=== PATIENT | male | born 1965 | race Caucasian/White ===

== ENCOUNTER 2022-01-05 13:39 | Inpatient (IN) | payer BC, MEDICAID ==
[~2022-01-05] VITALS: Ht 172.7 cm; Wt 99.8 kg
[2022-01-05 13:50] VITALS: BP_SYST 122
--- NOTE | 2022-01-05 13:50 | NUR ---
Patient to ER bed 6 for evaluation. Side rails up. Report given to Fallon VALLE.
--- NOTE | 2022-01-05 13:52 | NUR ---
Pt brought by ALS, A&Ox4, pt presents to ER with rectal bleeding/ tarry stool,BS 454, pt states he did not go to dyalisis today since he had diarrhea, pt respirations even and unlabored,copious amount of blood noticed in the gurney, 1 liter of fluid started by EMS, 20 gauge IV on L hand is intact cap refill <3, skin is pale, pt has Hx of R BKA, will cont to monitor.
--- NOTE | 2022-01-05 13:55 | NUR ---
Dr Crockett evaluating patient at bedside
--- NOTE | 2022-01-05 14:20 | NUR ---
Report given to Aj VALLE
--- NOTE | 2022-01-05 14:20 | NUR ---
David strong in [facility] - 01/05/22 at 1503 by [email or web address] Report given to Isidro VALLE
[2022-01-05 15:00] LABS: ANION GAP 12 (5-15); CALCIUM 9.2 mg/dL (8.4-11.0); CHLORIDE 95 mmol/L (98-107); SODIUM SERUM 133 mmol/L (136-145)
[2022-01-05 15:01] LABS: BASOPHILS % (AUTO) 0.7 % (0.0-2.0); EOSINOPHILS # (AUTO) 0.1 K/uL (0.0-0.4); EOSINOPHILS % (AUTO) 1.3 % (0.0-4.0); GFR AFRICAN AMERICAN 10 mL/min (>90); LYMPHOCYTES # (AUTO) 1.5 K/uL (1.0-5.5); LYMPHOCYTES % (AUTO) 21.1 % (20.5-51.5); MEAN CORPUSCULAR HEMOGLOBIN 27 pg (27-31); MEAN CORPUSCULAR HGB CONC 33 % (32-36); MEAN CORPUSCULAR VOLUME 82 fL (79.0-98.0); MONOCYTES # (AUTO) 0.4 K/uL (0.0-1.0); MONOCYTES % (AUTO) 6.1 % (1.7-9.3); NEUTROPHILS # (AUTO) 5.1 K/uL (1.8-7.7); NEUTROPHILS % (AUTO) 70.8 % (40.0-70.0); PLATELET COUNT (AUTO) 167 K/uL (130-430); RED BLOOD CELL COUNT(AUTO) 2.56 MIL/uL (4.2-6.2); RED CELL DISTRIBUTION WIDTH 13.9 % (9.0-15.0); WHITE BLOOD COUNT (AUTO) 7.2 K/uL (4.8-10.8)
[2022-01-05 15:03] LABS: POTASSIUM 7.3 mmol/L (3.5-5.1)
[2022-01-05 15:04] LABS: CREATININE 7.64 mg/dL (0.55-1.30); GLUCOSE 500 mg/dL (70-99); UREA NITROGEN, BLOOD 159 mg/dL (8-21)
[2022-01-05 15:05] LABS: ACETONE, SERUM NEGATIVE (NEGATIVE); LIPASE 141 U/L (73-393)
[2022-01-05 15:07] LABS: ALANINE AMINOTRANSFERASE 15 U/L (12-78); ALBUMIN 2.4 g/dL (3.4-4.8); ASPARTATE AMINOTRANSFERASE 20 U/L (10-37); TOTAL BILIRUBIN 0.4 mg/dL (0.0-1.0)
[2022-01-05 15:08] LABS: HEMOGLOBIN 6.9 g/dL (14.0-18.0)
[2022-01-05 15:09] LABS: HEMATOCRIT 20.9 % (36-54)
[2022-01-05] MEDS ORDERED: NACL 0.9% 1,000 ML IV ONE ×2 (15:15)
[2022-01-05] MEDS ORDERED: SODIUM POLYSTYRENE SULFONATE 15 GM/60 ML UDBTL PO ONE (15:15)
[2022-01-05] MEDS ORDERED: SODIUM BICARBONATE 8.4% JECT 50 MEQ/50 ML SYRINGE IVP ONE (15:15)
[2022-01-05] MEDS ORDERED: INSULIN REGULAR, HUMAN 10 UNITS/0.1 ML INJ IVP ONE (15:15)
--- NOTE | 2022-01-05 16:32 | NUR ---
Blood consent signed by REYMUNDORey (sister), brought to blood bank. geotechnician stated approx one hour depending on presence of any antibitoies.
--- NOTE | 2022-01-05 17:05 | NUR ---
Admit bed requested Patient will be admitted to care of Dr. Hester. Admitted to ICU unit. Diagnosis Hyperkalemia, GI Bleeding Inpatient (Yes or No) Y Observation (Yes or No) N Orientation concerns or request close to nursing station (Yes or No) N Covid Status Pend On vent or bipap N Isolation requirements N Needs a sitter N From Home (Yes or if No enter name of facility) Home Requires Dialysis (Yes or No) Y Med Rec Completed (Yes of No) Y
--- NOTE | 2022-01-05 17:17 | NUR ---
Patient noted to have dried blood around rectum and buttocks. Cleansed patient, and made sister aware that he would be going to ICU and getting blood shortly.
[2022-01-05 18:55] VITALS: BP_SYST 101
[2022-01-05 20:00] VITALS: BP_SYST 87
[2022-01-05] MEDS: D5/0.45 NS 1,000 ML IV SCH (20:41)
[2022-01-05 21:00] VITALS: BP_SYST 123
[2022-01-05] MEDS ORDERED: NOREPINEPHRINE BITARTRATE 4 MG in NS 218 ML IV PRN (21:30)
[2022-01-05 22:00] VITALS: BP_SYST 133
[2022-01-05] MEDS ORDERED: INSULIN REGULAR, HUMAN 100 UNITS in NS 99 ML IV PRN ×2 (22:00)
[2022-01-05] MEDS ORDERED: DEXTROSE 50% JECT 50 ML DISP.SYRIN IVP PRN (22:00)
--- NOTE | 2022-01-05 23:08 | NUR ---
CONSULTATION PAGED/CALLED Reason for Consultation: GIB Person Who was Notified: TORY Consulting Physician: DR. PRESSLEY (DR. ROCHA TEACHER LIP READING) Speech And Drama Teacher Specialty: GI Ordering Physician: DR. ARRINGTON Reason for Consultation: CRITICAL CARE Person Who was Notified: AWARE OF CONSULTS ORDERS ENTERED ON [employer] Consulting Physician: DR. FREEMAN Speech And Drama Teacher Specialty: CARDIOPULMONARY Ordering Physician: DR. ARRINGTON
[2022-01-05 23:14] LABS: INR 1.1 (0.80-1.20); PROTHROMBIN TIME 10.9 SECS (9.5-12.5)
[2022-01-05 23:23] LABS: CREATININE 4.2 mg/dL (0.55-1.30); POTASSIUM 3.8 mmol/L (3.5-5.1)
[2022-01-06] VITALS (23 sets, daily range): BP systolic 96–150
[2022-01-06 06:45] LABS: BASOPHILS # (AUTO) 0.1 K/uL (0.0-0.2); BASOPHILS % (AUTO) 0.9 % (0.0-2.0); EOSINOPHILS # (AUTO) 0.1 K/uL (0.0-0.4); EOSINOPHILS % (AUTO) 0.8 % (0.0-4.0); HEMATOCRIT 23.3 % (36-54); HEMOGLOBIN 7.8 g/dL (14.0-18.0); LYMPHOCYTES # (AUTO) 1.5 K/uL (1.0-5.5); LYMPHOCYTES % (AUTO) 22.2 % (20.5-51.5); MEAN CORPUSCULAR HEMOGLOBIN 28 pg (27-31); MEAN CORPUSCULAR HGB CONC 34 % (32-36); MEAN CORPUSCULAR VOLUME 83 fL (79.0-98.0); MONOCYTES # (AUTO) 0.4 K/uL (0.0-1.0); MONOCYTES % (AUTO) 6.3 % (1.7-9.3); NEUTROPHILS # (AUTO) 4.8 K/uL (1.8-7.7); NEUTROPHILS % (AUTO) 69.8 % (40.0-70.0); PLATELET COUNT (AUTO) 142 K/uL (130-430); RED CELL DISTRIBUTION WIDTH 14.7 % (9.0-15.0); WHITE BLOOD COUNT (AUTO) 6.9 K/uL (4.8-10.8)
[2022-01-06] MEDS: INSULIN REGULAR, HUMAN 100 UNITS/ML, 10 ML VIAL (humuLIN R) SUBCUT PRN ×2 (06:58→13:04)
[2022-01-06 07:09] LABS: ALBUMIN 2.3 g/dL (3.4-4.8); CALCIUM 8.5 mg/dL (8.4-11.0); CREATININE 4.47 mg/dL (0.55-1.30); TOTAL BILIRUBIN 0.4 mg/dL (0.0-1.0)
[2022-01-06] MEDS: PANTOPRAZOLE SODIUM 40 MG/VIAL (PROTONIX) IVP SCH (08:55)
[2022-01-06] MEDS ORDERED: INSULIN GLARGINE 100 UNITS/ML 10 ML VIAL SUBCUT ONE (11:00)
--- NOTE | 2022-01-06 11:00 | NUR ---
Pt a/ox4, SR on the monitor. IVF at 40ml/hr. Pt NPO status. Obtained informed consent for colonscopy tommorrow, discussed risks and benefits of procedure. Also 2 sisters at the bedside and aware of procedure. Right arm AV shunt patent with good thrill and bruit. Right neck EJ patent w/o signs of infiltration. Pt had BM this AM, skin washed and kept clean and dry. All needs anticipated and met. VSS.
[2022-01-06] MEDS ORDERED: NOREPINEPHRINE BITARTRATE 4 MG in NS 246 ML IV PRN (12:32)
[2022-01-06] MEDS: D5/0.45 NS 1,000 ML IV SCH ×2 (15:30→21:22)
[2022-01-06] MEDS ORDERED: BISACODYL 5 MG TABLET.DR (DULCOLAX) PO ONE (17:00)
[2022-01-06] MEDS ORDERED: GOLYTELY / COLYTE SOLUTION 4 LITERS PO ONE (18:00)
--- NOTE | 2022-01-06 19:00 | NUR ---
RECEIVED FROM MORNING NURSE .PT ON ROOM ROOM AIR SPO2-100%.ALERT AND ORIENTED X 4 .PT ON GEETA D5NS@40MLS/HR.
--- NOTE | 2022-01-06 21:00 | NUR ---
has passed loose stools cleaned and linen changed
[2022-01-07] VITALS (24 sets, daily range): BP systolic 103–177
[2022-01-07] MEDS: INSULIN REGULAR, HUMAN 100 UNITS/ML, 10 ML VIAL (humuLIN R) SUBCUT PRN ×4 (05:53→18:19)
--- NOTE | 2022-01-07 06:00 | NUR ---
morning cares done pt had a total of 4 BMs loose stools. cleaned and linen changed .awaits colonoscopy today
[2022-01-07 07:07] LABS: ALBUMIN 2.4 g/dL (3.4-4.8); CALCIUM 9.2 mg/dL (8.4-11.0); CREATININE 5.93 mg/dL (0.55-1.30); POTASSIUM 3.6 mmol/L (3.5-5.1); TOTAL BILIRUBIN 0.4 mg/dL (0.0-1.0)
[2022-01-07 07:08] LABS: INR 1.1 (0.80-1.20); PROTHROMBIN TIME 11.5 SECS (9.5-12.5)
[2022-01-07 07:10] LABS: BASOPHILS % (AUTO) 0.9 % (0.0-2.0); EOSINOPHILS # (AUTO) 0.3 K/uL (0.0-0.4); EOSINOPHILS % (AUTO) 4.9 % (0.0-4.0); HEMATOCRIT 22.5 % (36-54); HEMOGLOBIN 7.5 g/dL (14.0-18.0); LYMPHOCYTES # (AUTO) 1.6 K/uL (1.0-5.5); LYMPHOCYTES % (AUTO) 28.9 % (20.5-51.5); MEAN CORPUSCULAR HEMOGLOBIN 28 pg (27-31); MEAN CORPUSCULAR HGB CONC 34 % (32-36); MEAN CORPUSCULAR VOLUME 83 fL (79.0-98.0); MONOCYTES # (AUTO) 0.4 K/uL (0.0-1.0); MONOCYTES % (AUTO) 7.6 % (1.7-9.3); NEUTROPHILS # (AUTO) 3.2 K/uL (1.8-7.7); NEUTROPHILS % (AUTO) 57.7 % (40.0-70.0); PLATELET COUNT (AUTO) 158 K/uL (130-430); RED CELL DISTRIBUTION WIDTH 14.9 % (9.0-15.0); WHITE BLOOD COUNT (AUTO) 5.5 K/uL (4.8-10.8)
--- NOTE | 2022-01-07 07:10 | NUR ---
Received report from track grinder RN, and assumed patient care.
--- NOTE | 2022-01-07 07:15 | NUR ---
Dr. Wilde at bedside, MD is aware of patient pending colonoscopy today (no time noted at the moment), patient had no further questions noted at the end of MD's assessment. No new orders noted at the moment and will reinforce if needed throughout the shift.
--- NOTE | 2022-01-07 07:52 | NUR ---
Dr. Alston at bedside, MD is aware of pending colonoscopy procedure. No additional orders noted at the moment, will reinforce if needed throughout the shift.
[2022-01-07] MEDS: PANTOPRAZOLE SODIUM 40 MG/VIAL (PROTONIX) IVP SCH (08:00)
[2022-01-07] MEDS: INSULIN GLARGINE 100 UNITS/ML 10 ML VIAL SUBCUT SCH (08:06)
--- NOTE | 2022-01-07 08:10 | NUR ---
Dr. Chen at bedside, no new orders noted at the moment. Will reinforce if needed throughout the shift.
[2022-01-07] MEDS ORDERED: MEPERIDINE 100 MG INJ. 100 MG/ML VIAL ONE (08:17)
--- NOTE | 2022-01-07 08:20 | NUR ---
Dr. Logan at bedside, will place dialysis order for tomorrow (01/08/22), will reinforce if needed throughout the shift.
[2022-01-07] MEDS ORDERED: MIDAZOLAM HCL 5 MG/5 ML VIAL ONE (08:21)
--- NOTE | 2022-01-07 08:30 | NUR ---
GI team at bedside, colonoscopy procedure in place. Time out performed, Dr. Wren is at bedside and informed patient about risks and benefits, no questions noted at the moment, and will reinforce if needed throughout the shift.
--- NOTE | 2022-01-07 09:10 | NUR ---
Colonscopy procedure ended, per Dr. Wren no signs of bleeding and colonoscopy is negative, OK to resume diet and will inform primary MD. Dr. Wilde at bedside, OK to downgrade patient, monorail charger operator (Sandra) is aware. Will wait for orders to be placed.
[2022-01-07 11:13] LABS: TOTAL IRON BIND. CAPACITY 126 ug/dL (250-450)
--- NOTE | 2022-01-07 14:30 | NUR ---
Patient's sister at bedside, provided nursing updates per patient's request, no additional questions noted at the moment, will reinforce if needed throughout the shift.
--- NOTE | 2022-01-07 19:00 | NUR ---
RECEIVED PT RESTING IN BED.FULLY ALERT AND ORIENTED.IVF D5NS @ 40CC/H IN PROGRESS.DENIES PAIN.CARES OFFERED .PT TURNING SELF
[2022-01-07] MEDS: D5/0.45 NS 1,000 ML IV SCH (23:31)
[2022-01-08] VITALS: BP_SYST 148
--- NOTE | 2022-01-08 | NUR ---
BLOOD SUGAR COVERED COVERED WITH REGULAR INSULIN 4 UNITS.AWAITS TRANSFER TO MED SURG RM 107-A. pt updated about downgrading to M/Surg
[2022-01-08] MEDS: INSULIN REGULAR, HUMAN 100 UNITS/ML, 10 ML VIAL (humuLIN R) SUBCUT PRN ×3 (00:09→17:03)
--- NOTE | 2022-01-08 00:30 | NUR ---
PTS REPORT GIVEN TO CARYN PAIZ/SURG NURSE
[2022-01-08 01:38] VITALS: BP_SYST 160
--- NOTE | 2022-01-08 02:25 | NUR ---
RECEIVED PT FROM ICU, NO DISTRESS NOTED, DENIES PAIN. AAOX4. IV TO LT FA SITE CDI, AV FISTULA TO RT FA +BRUIT AND +THRILL. RT BKA. PT STATES HE'S ANURIC. NO S/S OF BLEEDING, WILL MONITOR CLOSELY.
[2022-01-08 07:09] LABS: ALBUMIN 2.8 g/dL (3.4-4.8); CALCIUM 7.7 mg/dL (8.4-11.0); CREATININE 4.2 mg/dL (0.55-1.30); POTASSIUM 4.9 mmol/L (3.5-5.1); TOTAL BILIRUBIN 0.2 mg/dL (0.0-1.0)
[2022-01-08 07:50] VITALS: BP_SYST 187
--- NOTE | 2022-01-08 07:50 | NUR ---
INITIAL ROUNDS Received pt AAOx4, no s/s resp distress, no c/o pain or discomfort. Plan of care for the day reviewed with pt-pt verbalized his understanding. Noted pt with elevated BP-will inform doctor. Pt to have dialysis today. Pain management, disease process, skin and safety discussed-teach back done. Call light within reach.
[2022-01-08 08:54] LABS: BASOPHILS # (AUTO) 0.1 K/uL (0.0-0.2); BASOPHILS % (AUTO) 0.7 % (0.0-2.0); EOSINOPHILS % (AUTO) 0.1 % (0.0-4.0); HEMATOCRIT 26.9 % (36-54); HEMOGLOBIN 9.3 g/dL (14.0-18.0); MEAN CORPUSCULAR HEMOGLOBIN 31 pg (27-31); MEAN CORPUSCULAR HGB CONC 35 % (32-36); MEAN CORPUSCULAR VOLUME 88 fL (79.0-98.0); MONOCYTES # (AUTO) 0.5 K/uL (0.0-1.0); MONOCYTES % (AUTO) 6.6 % (1.7-9.3); NEUTROPHILS # (AUTO) 5.9 K/uL (1.8-7.7); NEUTROPHILS % (AUTO) 79.6 % (40.0-70.0); PLATELET COUNT (AUTO) 171 K/uL (130-430); RED BLOOD CELL COUNT(AUTO) 3.04 MIL/uL (4.2-6.2); RED CELL DISTRIBUTION WIDTH 13.9 % (9.0-15.0); WHITE BLOOD COUNT (AUTO) 7.4 K/uL (4.8-10.8)
--- NOTE | 2022-01-08 09:02 | NUR ---
ELEVATED BP/MD Dr. Chen here and informed that the pt's BP was 187/95 with no BP medications-Dr. Chen stated he will look into it.
[2022-01-08] MEDS: PANTOPRAZOLE SODIUM 40 MG/VIAL (PROTONIX) IVP SCH (09:49)
[2022-01-08] MEDS: INSULIN GLARGINE 100 UNITS/ML 10 ML VIAL SUBCUT SCH (09:51)
[2022-01-08 12:30] VITALS: BP_SYST 166
--- NOTE | 2022-01-08 13:45 | NUR ---
HD Received report from care transition coordinator, 3.5 L out, BP 116/80.
[2022-01-08 16:40] VITALS: BP_SYST 161
--- NOTE | 2022-01-08 18:35 | NUR ---
CLOSING NOTE Pt sitting up in bed visiting with his . No s/s resp distress, no c/o pain or discomfort. All precautions remain in place. Needs met, call light within reach.
--- NOTE | 2022-01-08 19:30 | NUR ---
PM Assessment Received report from AM shift using SBAR approach
[2022-01-08 20:00] VITALS: BP_SYST 164
--- NOTE | 2022-01-08 21:00 | NUR ---
changed all linens and gown
[2022-01-09] VITALS: BP_SYST 160
[2022-01-09 04:00] VITALS: BP_SYST 162
[2022-01-09 06:53] LABS: BASOPHILS % (AUTO) 0.6 % (0.0-2.0); EOSINOPHILS # (AUTO) 0.3 K/uL (0.0-0.4); EOSINOPHILS % (AUTO) 5.8 % (0.0-4.0); HEMATOCRIT 22.2 % (36-54); HEMOGLOBIN 7.5 g/dL (14.0-18.0); LYMPHOCYTES # (AUTO) 1.5 K/uL (1.0-5.5); LYMPHOCYTES % (AUTO) 26.6 % (20.5-51.5); MEAN CORPUSCULAR HEMOGLOBIN 28 pg (27-31); MEAN CORPUSCULAR HGB CONC 34 % (32-36); MONOCYTES # (AUTO) 0.5 K/uL (0.0-1.0); MONOCYTES % (AUTO) 8.3 % (1.7-9.3); NEUTROPHILS # (AUTO) 3.4 K/uL (1.8-7.7); NEUTROPHILS % (AUTO) 58.7 % (40.0-70.0); PLATELET COUNT (AUTO) 178 K/uL (130-430); RED BLOOD CELL COUNT(AUTO) 2.68 MIL/uL (4.2-6.2); WHITE BLOOD COUNT (AUTO) 5.8 K/uL (4.8-10.8)
[2022-01-09 07:30] LABS: MEAN CORPUSCULAR VOLUME 83 fL (79.0-98.0)
[2022-01-09 08:00] VITALS: BP_SYST 157
[2022-01-09] MEDS ORDERED: DOCUSATE SODIUM 100 MG CAPSULE PO PRN (08:00)
[2022-01-09 08:50] LABS: ALBUMIN 2.4 g/dL (3.4-4.8); CALCIUM 8.5 mg/dL (8.4-11.0); CREATININE 5.2 mg/dL (0.55-1.30); POTASSIUM 3.5 mmol/L (3.5-5.1); TOTAL BILIRUBIN 0.4 mg/dL (0.0-1.0)
[2022-01-09] MEDS: NEPHROVITE, (FOLIC ACID/VITAMIN B COMP W-C 1 TAB) PO SCH (09:00)
[2022-01-09] MEDS ORDERED: cloNIDine HCL 0.1 MG TABLET PO PRN (09:30)
[2022-01-09] MEDS: PANTOPRAZOLE SODIUM 40 MG/VIAL (PROTONIX) IVP SCH (10:50)
[2022-01-09] MEDS: INSULIN GLARGINE 100 UNITS/ML 10 ML VIAL SUBCUT SCH (10:57)
[2022-01-09 11:39] VITALS: BP_SYST 170
[2022-01-09] MEDS: INSULIN REGULAR, HUMAN 100 UNITS/ML, 10 ML VIAL (humuLIN R) SUBCUT PRN ×2 (12:52→23:54)
[2022-01-09] MEDS: CALCIUM ACETATE 667 MG CAP PO SCH (12:55)
[2022-01-09 16:45] VITALS: BP_SYST 179
[2022-01-09 20:00] VITALS: BP_SYST 167
[2022-01-09] MEDS: D5/0.45 NS 1,000 ML IV SCH (20:43)
[2022-01-10] VITALS: BP_SYST 152
[2022-01-10 04:00] VITALS: BP_SYST 144
--- NOTE | 2022-01-10 05:39 | NUR ---
PATIENT ASLEEP ALL NIGHT. NO COMPLAINTS MADE. STABLE. NO DISTRESS. KEPT WARM AND COMFORTABLE. PIV INTACT AND FLUSHING WELL. NO S/S OF INFILTRATION NOTED. IVF INFUSING WELL AT ORDERED RATE. KEPT WARM AND COMFORTABLE. ALL NEEDS ATTENDED. FSBS DONE AND COVERED WITH INSULIN ACCORDINGLY. CALLED LIGHT PLACED WITHIN REACH. MONITORED CLOSELY.
[2022-01-10 07:02] LABS: BASOPHILS # (AUTO) 0.1 K/uL (0.0-0.2); BASOPHILS % (AUTO) 0.9 % (0.0-2.0); EOSINOPHILS # (AUTO) 0.4 K/uL (0.0-0.4); EOSINOPHILS % (AUTO) 7.5 % (0.0-4.0); HEMATOCRIT 22.9 % (36-54); HEMOGLOBIN 7.8 g/dL (14.0-18.0); LYMPHOCYTES # (AUTO) 1.5 K/uL (1.0-5.5); LYMPHOCYTES % (AUTO) 24.9 % (20.5-51.5); MEAN CORPUSCULAR HEMOGLOBIN 28 pg (27-31); MEAN CORPUSCULAR HGB CONC 34 % (32-36); MEAN CORPUSCULAR VOLUME 83 fL (79.0-98.0); MONOCYTES # (AUTO) 0.5 K/uL (0.0-1.0); MONOCYTES % (AUTO) 8.4 % (1.7-9.3); NEUTROPHILS # (AUTO) 3.4 K/uL (1.8-7.7); NEUTROPHILS % (AUTO) 58.3 % (40.0-70.0); PLATELET COUNT (AUTO) 173 K/uL (130-430); RED BLOOD CELL COUNT(AUTO) 2.76 MIL/uL (4.2-6.2); RED CELL DISTRIBUTION WIDTH 15.6 % (9.0-15.0); WHITE BLOOD COUNT (AUTO) 5.8 K/uL (4.8-10.8)
--- NOTE | 2022-01-10 07:09 | NUR ---
PHYSICAL THERAPY CO-SIGN The Physical Therapy Progress Notes documented by Air Quality Manager have been reviewed. Reviewed/Co-Signed by: Bethel Serna Documentation Done by: JALEN COSTA PTA Addendum: 01/10/22 at 0709 by Bethel Serna PT Amended: Links added.
[2022-01-10 07:32] LABS: ALBUMIN 2.4 g/dL (3.4-4.8); CALCIUM 8.5 mg/dL (8.4-11.0); CREATININE 6.68 mg/dL (0.55-1.30); POTASSIUM 3.8 mmol/L (3.5-5.1); TOTAL BILIRUBIN 0.3 mg/dL (0.0-1.0)
[2022-01-10 08:21] VITALS: BP_SYST 173
[2022-01-10] MEDS ORDERED: PHO667 PO (08:55)
[2022-01-10] MEDS ORDERED: PRO40 PO (08:55)
[2022-01-10] MEDS ORDERED: NIFEdipine PO (08:55)
[2022-01-10] MEDS ORDERED: ANURH RC (08:55)
[2022-01-10] MEDS ORDERED: NEPH PO (08:55)
[2022-01-10] MEDS ORDERED: INSU100V9 SUBCUT (08:55)
[2022-01-10] MEDS ORDERED: NIFEdipine 30 MG TAB.ER.24 PO SCH (09:00)
[2022-01-10] MEDS: NEPHROVITE, (FOLIC ACID/VITAMIN B COMP W-C 1 TAB) PO SCH (09:05)
[2022-01-10] MEDS: CALCIUM ACETATE 667 MG CAP PO SCH ×3 (09:05→18:36)
[2022-01-10] MEDS: PANTOPRAZOLE SODIUM 40 MG/VIAL (PROTONIX) IVP SCH (09:06)
[2022-01-10] MEDS: INSULIN GLARGINE 100 UNITS/ML 10 ML VIAL SUBCUT SCH (09:09)
--- NOTE | 2022-01-10 09:20 | NUR ---
dr wynne here and seen/spke with pt., said pt is dc home after hd per nephrology.
[2022-01-10] MEDS: INSULIN REGULAR, HUMAN 100 UNITS/ML, 10 ML VIAL (humuLIN R) SUBCUT PRN (11:40)
[2022-01-10] MEDS: D5/0.45 NS 1,000 ML IV SCH (15:30)
--- NOTE | 2022-01-10 15:37 | NUR ---
Attempted PT visit, pt currently on dialysis.
--- NOTE | 2022-01-10 15:47 | NUR ---
Wound Evaluation: Wound Consult ordered for Low Pineda Score. Patient evaluated for a low Pineda score, now a 20. Patient was awake, alert, oriented and received in a [place] Bed with an Atmos-Air 9000 mattress. Patient is able to turn in bed. Skin is intact. Recommend: Encourage and assist patient as needed with repositioning every 2 hours with pillow support. Elevate, off-load and float bilateral heels with pillows. Offload pressure areas with pillows for pressure re-distribution. Perform skin care and monitor skin integrity Q shift.
--- NOTE | 2022-01-10 15:52 | NUR ---
Dietitian Recommendations * Renal, CCHO diet STEPHANIE, RD Please refer to Nutrition Assessment for details. Addendum: 01/10/22 at [address] Amended: Links added.
[2022-01-10 17:04] VITALS: BP_SYST 159
--- NOTE | 2022-01-10 18:00 | NUR ---
PT HAD HD TODAY, PT IS ON STABLE CONDITION AFTER HD. WILL DC HOME ORDERED.
--- NOTE | 2022-01-10 19:30 | NUR ---
D/C Patient Patient given medication reconciliation form and D/C instructions. Exit Care provided. Patient verbalized understanding. MD discussed with patient the results and treatment provided. Non- Ambulatory with Sonja SHAFER for discharge to home. Patient in stable condition, ID band removed. IV catheter removed, intact and dressing applied, no active bleeding. eRx given by MD. MD instructed pt to check with his pharmacy for new meds. Patient educated on pain management. All belongings sent with patient. PT dc home with taxi voucher.
== END 2022-01-10 21:06 | disposition home or self-care (01) | DRG 377 ==
LOC: SED 13:39 → SIC 15:18 → STU 01-08 00:34 → SMU 01-08 17:21
PROVIDERS: ADMIT Preventive Medicine Preventive Medicine/Occupational Environmental Medicine; ATTEND Preventive Medicine Preventive Medicine/Occupational Environmental Medicine
PROC: 30233N1 Transfusion of Nonautologous Red Blood Cells into Peripheral Vein, Percutaneous Approach (ICD-10-PCS; 2022-01-05)
PROC: 0DJD8ZZ Inspection of Lower Intestinal Tract, Via Natural or Artificial Opening Endoscopic (ICD-10-PCS; principal; 2022-01-07 08:30)
PROC: 5A1D70Z Performance of Urinary Filtration, Intermittent, Less than 6 Hours Per Day (ICD-10-PCS; 2022-01-08)
PROC: 5A1D70Z Performance of Urinary Filtration, Intermittent, Less than 6 Hours Per Day (ICD-10-PCS; 2022-01-10)
DX: K57.31 Diverticulosis of large intestine without perforation or abscess with bleeding (principal); N18.6 End stage renal disease; R57.8 Other shock; I12.0 Hypertensive chronic kidney disease with stage 5 chronic kidney disease or end stage renal disease; N17.9 Acute kidney failure, unspecified; K64.8 Other hemorrhoids; K64.4 Residual hemorrhoidal skin tags; D64.9 Anemia, unspecified; E87.5 Hyperkalemia; E11.22 Type 2 diabetes mellitus with diabetic chronic kidney disease; E11.65 Type 2 diabetes mellitus with hyperglycemia; E11.51 Type 2 diabetes mellitus with diabetic peripheral angiopathy without gangrene; Z20.822 Contact with and (suspected) exposure to COVID-19; E66.9 Obesity, unspecified; Z89.511 Acquired absence of right leg below knee; Z99.2 Dependence on renal dialysis; Z68.33 Body mass index [BMI] 33.0-33.9, adult
CPT/HCPCS: 36415; 36430; 45378; 71045; 76376; 80048; 80053; 82009; 82962; 83540; 83550; 83690; 83880; 84484; 85025; 85610-TC; 85730-TC; 86886; 86900; 86901; 86920; 87081; 90935; 90937; 93005; 97110-GP; 97530-GP; 99285; C9113; J1815; J2175; J2250; P9021